=== PATIENT | male | born 1950 | race American Indian/Alaskan Native ===

== ENCOUNTER 2016-07-18 19:29 | Emergency (ER) | payer OTHER ==
[2016-07-18 19:48] VITALS: BP 159/103
[2016-07-18] MEDS ORDERED: NORCO 5/325 PO ONE (20:21)
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
== END 2016-07-18 22:20 | disposition home or self-care (01) ==
LOC: ED 19:29
DX: S80.212A Abrasion, left knee, initial encounter (principal); M54.5 Low back pain; I10 Essential (primary) hypertension; E11.9 Type 2 diabetes mellitus without complications; V49.49XA Driver injured in collision with other motor vehicles in traffic accident, initial encounter; X58.XXXA Exposure to other specified factors, initial encounter; Y93.9 Activity, unspecified; Y92.9 Unspecified place or not applicable; Y99.9 Unspecified external cause status